=== PATIENT | male | born 1950 | race Caucasian/White ===

== ENCOUNTER 2016-11-12 14:34 | Inpatient (IN) ==
[2016-11-12 16:10] LABS: Basophils % 0.4 %; Eosinophils % 0.2 %; Hematocrit 39.7 % (37.5-50.1); Hemoglobin 13.2 g/dL (12.9-16.9); Immature Granulocytes % 0.4 % (0-4); Lymphocytes # 0.3 K/mcL (0.6-4.6); Lymphocytes % 3.2 %; Mean Corpuscular HGB Conc 33.2 g/dL (31.6-35.5); Mean Corpuscular Hemoglobin 30.2 pg (28.0-33.3); Mean Corpuscular Volume 90.8 fL (83.0-100.0); Mean Platelet Volume 9.6 fL (9.4-12.4); Monocytes # 0.7 K/mcL (0.0-1.3); Monocytes % 6.9 %; Neutrophils # 9.1 K/mcL (1.6-8.9); Platelet Count 184 K/mcL (140-400); Red Blood Count 4.37 M/mcL (4.19-5.50); Red Cell Distribution Width 12.5 % (11.5-14.5); Segmented Neutrophils % 88.9 %
[2016-11-12 16:16] LABS: Bilirubin,Urine Small (Negative); Blood,Urine Negative (Negative); Clarity,Urine Cloudy (Clear); Color,Urine Dark Yellow (Yellow); Glucose,Urine (UA) Normal (Normal); Ketones,Urine 15 mg/dL (Negative); Leukocyte Esterase,Urine Trace (Negative); Nitrite,Urine Negative (Negative); Protein,Urine 30 mg/dL (Neg-Trace); Specific Gravity,Urine 1.029 (1.010-1.025); Urobilinogen,Urine Normal (Normal)
[2016-11-12 16:21] LABS: Bacteria,Urine None Seen per hpf (None-Few); Hyaline Casts,Urine None Seen per lpf (None-Few); RBC,Urine 0-3 per hpf (0-3); Squamous Epithelial Cell,Urine Moderate per lpf (None-Few); WBC,Urine 0-3 per hpf (0-3)
[2016-11-12 16:25] LABS: Alanine Aminotransferase 479 Units/L (0-55); Albumin 3.7 g/dL (3.5-5.0); Albumin/Globulin Ratio 1.3 (1.1-2.2); Alkaline Phosphatase 128 Units/L (38-126); Aspartate Amino Transferase 309 Units/L (5-34); BUN/Creatinine Ratio 17 (6-26); Bilirubin,Direct 0.6 mg/dL (0.0-0.5); Bilirubin,Indirect 0.5 mg/dL (0.0-1.2); Blood Urea Nitrogen 17 mg/dL (8-26); Calcium 8.9 mg/dL (8.6-10.8); Carbon Dioxide 26 mEq/L (19-29); Chloride 100 mEq/L (98-109); Globulin 2.9 g/dL (2.4-3.5); Glucose 107 mg/dL (70-99); Lipase 397 Units/L (8-78); Osmolality,Calculated 278 (280-300); Sodium 133 mEq/L (136-145); Total Protein 6.6 g/dL (6.0-8.3); eGFR For African Americans > 60 (> 60); eGFR For Non-African Americans > 60 (> 60)
[2016-11-12] MEDS ORDERED: Ondansetron 4 MG/2 ML VIAL IVP ONE (16:25)
[2016-11-12] MEDS ORDERED: *HR* OxyCODONE/APAP 5/325 TABLET PO ONE (16:25)
[2016-11-12] MEDS ORDERED: 0.9 % Sodium Chloride 1,000 ML IVC ONE (16:25)
[2016-11-12 16:26] LABS: Bilirubin,Total 1.1 mg/dL (0.2-1.2)
[2016-11-12] MEDS ORDERED: *HR* HYDROmorphone (PF) 1 MG/ML SYRINGE IVP ONE (16:27)
[2016-11-12 16:34] LABS: Mucus,Urine Few (Few); Triple Phosphate Crystal,Urine Present
[2016-11-12] MEDS ORDERED: Piperacillin/Tazobactam 3.375 GM in D5% in Water (Mini-Bag+) 100 ML IVPB ONE (18:37)
--- NOTE | 2016-11-12 18:53 | Emergency Department Note ---
Disposition Clinical Impression: Acute cholecystitis Pancreatitis Qualifiers: Chronicity: acute Pancreatitis type: unspecified pancreatitis type Acute pancreatitis complication: unspecified Qualified Code(s): K85.90 - Acute pancreatitis without necrosis or infection, unspecified Disposition: Admitted As Inpatient Condition: Good Abdominal Pain HPI - General Chief Complaint: ED Abdominal Pain Stated Complaint: ABD Pain Time Seen by Provider: 11/12/16 16:07 Source: patient Mode of arrival: ambulatory Limitations: no limitations Nursing Notes Reviewed: Yes Vital Signs Reviewed: Yes - History of Present Illness HPI Narrative: Patient here for evaluation of epigastric pain that radiates to back. Patient has a history of hypertension followed Dr. Young. Has been treated outpatient for possible ulcer with no relief. Patient states this got to the point that he cannot eat or drink anything without having this pain. His pain is to last approximately minutes to hours but recent episodes have lasted as long as 6 hours. When these episodes happen the patient states that he lays still in bed until they resolve. Patient's main complaint is pain however there is associated nausea with these episodes. Limited vomiting. No constipation or diarrhea. Pain Scale: 0 - Related Data Allergies Allergy/AdvReac Type Severity Reaction Status Date / Time No Known Allergies Allergy Verified 11/12/16 14:59 Review of Systems: CONSTITUTIONAL: No weight loss, fever, chills, weakness or fatigue. HEENT: Eyes: No visual changes. Ears, Nose, Throat: No hearing loss, difficulty talking or unable to swallow. SKIN: No rash or itching. CARDIOVASCULAR: No chest pain, chest pressure or chest discomfort. No palpitations or edema. RESPIRATORY: No shortness of breath, cough or sputum. GASTROINTESTINAL: Abdominal pain, nausea GENITOURINARY: No burning on urination or hematuria. NEUROLOGICAL: No headache, dizziness, syncope, paralysis, ataxia, numbness or tingling in the extremities. No change in bowel or bladder control. MUSCULOSKELETAL: No muscle pain, back pain, joint pain or stiffness. Abdominal Pain PMH - Past Medical History Medical history: Reports: hypertension Male Surgical History: Reports: other Psychiatric history: Reports: no psych history - Social History Smoking status: Never smoker Alcohol use: Reports: none Drug use: Reports: none Physical Exam General appearance: NAD, conversant Eyes: anicteric sclerae, moist conjunctivae; PERRL HENT: Atraumatic; oropharynx clear with moist mucous membranes and no mucosal ulcerations Neck: Normal inspection; Trachea midline; FROM, supple Lungs: CTA, with normal respiratory effort and no intercostal retractions CV: RRR, no MRGs Abdomen: Soft, tender to palpation epigastric and right upper quadrant region. Extremities: No peripheral edema or extremity lymphadenopathy Skin: Normal temperature; no rash, ulcers or lesions Psych: Appropriate mood and affect Neuro: alert and oriented to person, place and time - General General appearance: alert, in no apparent distress Course - Reevaluation(s) Reevaluation #1: Patient's pain improved after 1 dose of IV pain medication. Patient resting comfortably in bed. Discussed lab work as well as imaging results and the patient will be admitted with further evaluation and management to be done in the hospital. We will discuss surgery. - Consultations Consultation #1: Discussed with Dr. Herrera. Patient with elevated lipase as well as liver enzymes in the setting of an ultrasound with thickened gallbladder wall as well as pericholecystic fluid. Patient accepted to the surgical service. Vital Signs Temperature 99.5 F 11/12/16 14:55 Pulse Rate 99 11/12/16 14:55 Respiratory Rate 16 11/12/16 14:55 Blood Pressure 111/75 11/12/16 14:55 O2 Sat by Pulse Oximetry 96 11/12/16 14:55 Temperature 99.5 F 11/12/16 14:55 Pulse Rate 77 11/12/16 18:37 Respiratory Rate 18 11/12/16 18:37 Blood Pressure 114/64 11/12/16 18:37 O2 Sat by Pulse Oximetry 96 11/12/16 18:37 Oxygen Delivery Oxygen Delivery Room Air Abdominal Pain - Lab Data Result diagrams: 11/12/16 16:01 11/12/16 16:01 Lab Results 11/12/16 11/12/16 11/12/16 Range/Units 16:01 16:01 16:01 WBC 10.2 (4.3-11.1) K/mcL RBC 4.37 (4.19-5.50) M/mcL Hgb 13.2 (12.9-16.9) g/dL Hct 39.7 (37.5-50.1) % MCV 90.8 (83.0-100.0) fL MCH 30.2 (28.0-33.3) pg MCHC 33.2 (31.6-35.5) g/dL RDW 12.5 (11.5-14.5) % Plt Count 184 (140-400) K/mcL MPV 9.6 (9.4-12.4) fL Immature Gran % 0.4 (0-4) % Seg Neutrophils % 88.9 % Lymphocytes % 3.2 % Monocytes % 6.9 % Eosinophils % 0.2 % Basophils % 0.4 % Neutrophils # 9.1 H (1.6-8.9) K/mcL Lymphocytes # 0.3 L (0.6-4.6) K/mcL Monocytes # 0.7 (0.0-1.3) K/mcL Eosinophils # 0.0 (0.0-0.6) K/mcL Basophils # 0.0 (0.0-0.2) K/mcL PT (9.4-12.1) Seconds INR Sodium 133 L (136-145) mEq/L Potassium 4.0 (3.5-4.5) mEq/L Chloride 100 (98-109) mEq/L Carbon Dioxide 26 (19-29) mEq/L BUN 17 (8-26) mg/dL Creatinine 1.02 (0.72-1.25) mg/dL Est GFR ( Amer) > 60 (> 60) Est GFR (Non-Af Amer) > 60 (> 60) BUN/Creatinine Ratio 17 (6-26) Glucose 107 H (70-99) mg/dL Calculated Osmolality 278 L (280-300) Calcium 8.9 (8.6-10.8) mg/dL Total Bilirubin 1.1 (0.2-1.2) mg/dL Direct Bilirubin 0.6 H (0.0-0.5) mg/dL Indirect Bilirubin 0.5 (0.0-1.2) mg/dL AST 309 H (5-34) Units/L ALT 479 H (0-55) Units/L Alkaline Phosphatase 128 H (38-126) Units/L Troponin I (0-0.03) ng/mL Serum Total Protein 6.6 (6.0-8.3) g/dL Albumin 3.7 (3.5-5.0) g/dL Globulin 2.9 (2.4-3.5) g/dL Albumin/Globulin Ratio 1.3 (1.1-2.2) Triglycerides Cancelled Cholesterol Cancelled LDL Cholesterol, Calc Cancelled VLDL Cholesterol, Calc Cancelled HDL Cholesterol Cancelled Cholesterol/HDL Ratio Cancelled Lipase 397 H (8-78) Units/L Urine Color Dark Yellow (Yellow) Urine Clarity Cloudy A (Clear) Urine pH 8.0 (5.0-8.0) pH Units Ur Specific [place] 1.029 H (1.010-1.025) Urine Protein 30 H (Neg-Trace) mg/dL Urine Glucose (UA) Normal (Normal) mg/dL Urine Ketones 15 H (Negative) mg/dL Urine Blood Negative (Negative) Urine Nitrite Negative (Negative) Urine Bilirubin Small H (Negative) Urine Urobilinogen Normal (Normal) mg/dL Ur Leukocyte Esterase Trace H (Negative) Urine Microscopic RBC 0-3 (0-3) per hpf Urine Microscopic WBC 0-3 (0-3) per hpf Ur Squamous Epith Cells Moderate H (None-Few) per lpf Triple Phos Crystals Present Urine Bacteria None Seen (None-Few) per hpf Hyaline Casts None Seen (None-Few) per lpf Urine Mucus Few (Few) Ur Culture Indicated? YES A (NO) 11/12/16 11/12/16 Range/Units 16:01 16:01 WBC (4.3-11.1) K/mcL RBC (4.19-5.50) M/mcL Hgb (12.9-16.9) g/dL Hct (37.5-50.1) % MCV (83.0-100.0) fL MCH (28.0-33.3) pg MCHC (31.6-35.5) g/dL RDW (11.5-14.5) % Plt Count (140-400) K/mcL MPV (9.4-12.4) fL Immature Gran % (0-4) % Seg Neutrophils % % Lymphocytes % % Monocytes % % Eosinophils % % Basophils % % Neutrophils # (1.6-8.9) K/mcL Lymphocytes # (0.6-4.6) K/mcL Monocytes # (0.0-1.3) K/mcL Eosinophils # (0.0-0.6) K/mcL Basophils # (0.0-0.2) K/mcL PT 14.6 H (9.4-12.1) Seconds INR 1.3 Sodium (136-145) mEq/L Potassium (3.5-4.5) mEq/L Chloride (98-109) mEq/L Carbon Dioxide (19-29) mEq/L BUN (8-26) mg/dL Creatinine (0.72-1.25) mg/dL Est GFR ( Amer) (> 60) Est GFR (Non-Af Amer) (> 60) BUN/Creatinine Ratio (6-26) Glucose (70-99) mg/dL Calculated Osmolality (280-300) Calcium (8.6-10.8) mg/dL Total Bilirubin (0.2-1.2) mg/dL Direct Bilirubin (0.0-0.5) mg/dL Indirect Bilirubin (0.0-1.2) mg/dL AST (5-34) Units/L ALT (0-55) Units/L Alkaline Phosphatase (38-126) Units/L Troponin I 0.01 (0-0.03) ng/mL Serum Total Protein (6.0-8.3) g/dL Albumin (3.5-5.0) g/dL Globulin (2.4-3.5) g/dL Albumin/Globulin Ratio (1.1-2.2) Triglycerides Cholesterol LDL Cholesterol, Calc VLDL Cholesterol, Calc HDL Cholesterol Cholesterol/HDL Ratio Lipase (8-78) Units/L Urine Color (Yellow) Urine Clarity (Clear) Urine pH (5.0-8.0) pH Units Ur Specific [place] (1.010-1.025) Urine Protein (Neg-Trace) mg/dL Urine Glucose (UA) (Normal) mg/dL Urine Ketones (Negative) mg/dL Urine Blood (Negative) Urine Nitrite (Negative) Urine Bilirubin (Negative) Urine Urobilinogen (Normal) mg/dL Ur Leukocyte Esterase (Negative) Urine Microscopic RBC (0-3) per hpf Urine Microscopic WBC (0-3) per hpf Ur Squamous Epith Cells (None-Few) per lpf Triple Phos Crystals Urine Bacteria (None-Few) per hpf Hyaline Casts (None-Few) per lpf Urine Mucus (Few) Ur Culture Indicated? (NO) Attestation Statement - Attestation Attestation: I examined this patient and my medical decision-making was reviewed with the RECREATION ATTENDANT/PA/Advanced Practice Nurse/Resident Physician. I agree with the documented findings, disposition and treatment plan as described except to the extent set forth below. 66-year-old male patient with acute pancreatitis results, was found to have acute cholecystitis. Antibiotic therapy initiated. Consulted general surgery who is agreed to admit the patient for cholecystectomy.
[2016-11-12 19:01] LABS: INR 1.3; Prothrombin Time 14.6 Seconds (9.4-12.1)
[2016-11-12] MEDS: 0.9 % Sodium Chloride 1,000 ML IVC SCH (22:15)
[2016-11-12] MEDS ORDERED: *HR* HYDROmorphone (PF) 1 MG/ML SYRINGE IVP PRN (22:21)
[2016-11-12] MEDS ORDERED: Ondansetron 4 MG/2 ML VIAL IVP PRN (22:21)
[2016-11-12] MEDS ORDERED: 0.9 % Sodium Chloride 1,000 ML ONE (22:32)
--- NOTE | 2016-11-12 22:37 | General Surg History&Physical ---
Date of Encounter: 11/12/16 Time of Encounter: 22:10 Assessment and Plan (1) Gallstone pancreatitis Current Visit: Yes Status: Acute The assessment and plan as outlined above was discussed with the patient and/or family members who expressed understanding and agreement. All questions were answered. We will plan convalescent laparoscopic cholecystectomy and intraoperative cholangiogram. I will check his amylase and lipase tomorrow morning. If these values have normalized we will proceed with laparoscopic cholecystectomy, cholangiogram later in the day. History of Present Illness Chief complaint: Abdominal pain HPI: Mr. Guerin is a 66 year old male Was been having abdominal pain for 3 years. The pain is always been right upper quadrant and epigastric. Over the last 3 months this is increased in frequency and intensity. Most recently he had an episode that lasted over 7 hours. The pain is right upper quadrant radiating to the epigastrium and left upper quadrant. The pain is often associated with fatty food ingestion and often associated with nausea and vomiting. He has specifically denied shakes chills or fever. He has denied episodes of jaundice. He sought evaluation in the emergency department. CAT scan demonstrates cholelithiasis and pericholecystic fluid. Lipase is elevated consistent with gallstone pancreatitis. Past Med Surg Social Fam HX - Past Medical History Medical history: hypertension Psychiatric history: no psych history - Social History Smoking Status: Never smoker Smokeless Tobacco Status: No Alcohol use: none Drug use: none Medications and Allergies Lisinopril [Zestril] 5 mg PO DAILY 11/12/16 [History] Allergies No Known Allergies Allergy (Verified 11/12/16 14:59) Review of Systems All systems PM: A 10-system review of systems was performed and is negative for pertinent findings except as documented above in the HPI. General Surgery Exam Initial Vital Signs Temp Pulse Resp BP Pulse Ox 99.5 F 99 16 111/75 96 11/12/16 14:55 11/12/16 14:55 11/12/16 14:55 11/12/16 14:55 11/12/16 14:55 - General physical appearance well developed, well nourished, no distress - Neck no masses, no bruits, trachea midline, no lymphadectomy, no venous distension - Respiratory normal expansion, normal respiratory effort, clear to percussion, clear to auscultation - Cardiovascular Cardiovascular exam: Present: RRR, no murmurs/rubs/gallops - Abdomen Abdomen general surgery: Present: tender, guarding Abdominal Tenderness: Present: epigastic, RUQ - Neurologic Present: CN 2-12 grossly intact, normal coordination, normal sensation - Psychiatric Psychiatric general surgery: Present: appropriate, oriented to person, oriented to place, oriented to time, speech is normal, memory intact Results - Labs 11/12/16 16:01 11/12/16 16:01 Abnormal lab results Neutrophils # 9.1 K/mcL (1.6-8.9) H 11/12/16 16:01 Lymphocytes # 0.3 K/mcL (0.6-4.6) L 11/12/16 16:01 PT 14.6 Seconds (9.4-12.1) H 11/12/16 16:01 Sodium 133 mEq/L (136-145) L 11/12/16 16:01 Glucose 107 mg/dL (70-99) H 11/12/16 16:01 Calculated Osmolality 278 (280-300) L 11/12/16 16:01 Direct Bilirubin 0.6 mg/dL (0.0-0.5) H 11/12/16 16:01 AST 309 Units/L (5-34) H 11/12/16 16:01 ALT 479 Units/L (0-55) H 11/12/16 16:01 Alkaline Phosphatase 128 Units/L (38-126) H 11/12/16 16:01 Lipase 397 Units/L (8-78) H 11/12/16 16:01 Urine Clarity Cloudy (Clear) A 11/12/16 16:01 Ur Specific [place] 1.029 (1.010-1.025) H 11/12/16 16:01 Urine Protein 30 mg/dL (Neg-Trace) H 11/12/16 16:01 Urine Ketones 15 mg/dL (Negative) H 11/12/16 16:01 Urine Bilirubin Small (Negative) H 11/12/16 16:01 Ur Leukocyte Esterase Trace (Negative) H 11/12/16 16:01 Ur Squamous Epith Cells Moderate per lpf (None-Few) H 11/12/16 16:01 Ur Culture Indicated? YES (NO) A 11/12/16 16:01 All other labs normal. - Imaging CT scan - abdomen: image reviewed (I personally reviewed the CAT scan of the abdomen. Findings are consistent with cholelithiasis and pericholecystic fluid. )
[2016-11-13] MEDS: Piperacillin/Tazobactam 3.375 GM in D5% in Water (Mini-Bag+) 100 ML IVPB SCH ×3 (01:00→16:41)
[2016-11-13] MEDS ORDERED: D5% in Water (Mini-Bag+) 100 ML IVPB ONE (01:26)
[2016-11-13 03:35] LABS: Basophils % 0.6 %; Eosinophils % 0.2 %; Hematocrit 35.2 % (37.5-50.1); Hemoglobin 11.9 g/dL (12.9-16.9); Immature Granulocytes % 0.3 % (0-4); Lymphocytes # 0.6 K/mcL (0.6-4.6); Lymphocytes % 9.3 %; Mean Corpuscular HGB Conc 33.8 g/dL (31.6-35.5); Mean Corpuscular Hemoglobin 30.9 pg (28.0-33.3); Mean Corpuscular Volume 91.4 fL (83.0-100.0); Mean Platelet Volume 10.1 fL (9.4-12.4); Monocytes # 0.5 K/mcL (0.0-1.3); Platelet Count 159 K/mcL (140-400); Red Blood Count 3.85 M/mcL (4.19-5.50); Red Cell Distribution Width 12.7 % (11.5-14.5); Segmented Neutrophils % 81.6 %
[2016-11-13 03:53] LABS: Alanine Aminotransferase 321 Units/L (0-55); Albumin 3.1 g/dL (3.5-5.0); Albumin/Globulin Ratio 1.2 (1.1-2.2); Alkaline Phosphatase 101 Units/L (38-126); Amylase 181 Units/L (25-125); Aspartate Amino Transferase 172 Units/L (5-34); BUN/Creatinine Ratio 18 (6-26); Bilirubin,Direct 0.5 mg/dL (0.0-0.5); Bilirubin,Indirect 0.6 mg/dL (0.0-1.2); Bilirubin,Total 1.1 mg/dL (0.2-1.2); Blood Urea Nitrogen 18 mg/dL (8-26); Carbon Dioxide 25 mEq/L (19-29); Chloride 104 mEq/L (98-109); Globulin 2.5 g/dL (2.4-3.5); Glucose 101 mg/dL (70-99); Lipase 79 Units/L (8-78); Osmolality,Calculated 280 (280-300); Potassium 3.7 mEq/L (3.5-4.5); Sodium 134 mEq/L (136-145); Total Protein 5.6 g/dL (6.0-8.3); eGFR For African Americans > 60 (> 60); eGFR For Non-African Americans > 60 (> 60)
[2016-11-13] MEDS: *HR* Heparin 5,000 UNIT/ML VIAL SQ SCH ×2 (06:50→17:51)
[2016-11-13] MEDS ORDERED: Pantoprazole 40 MG VIAL IVP SCH (09:00)
[2016-11-13] MEDS: 0.9 % Sodium Chloride 1,000 ML IVC SCH ×2 (09:54→19:41)
--- NOTE | 2016-11-13 17:36 | Electrocardiograph Report ---
[place] [id number] Test Date: 2016-11-12 Pat Name: Alberto Guerin Department: 104 Room: 3B23 Gender: M Benefits Coordinator: DUONG : 1950 Requested By: Freddie Gorman Order Number: [id number] Reading MD: Katelynn Damon Measurements Intervals [place] Rate: 74 P: 46 AL: 142 QRS: 36 QRSD: 85 T: 38 QT: 341 QTc: 369 Interpretive Statements SINUS RHYTHM Electronically Signed On 11-13-2016 17:34:52 EDT by Katelynn Damon
--- NOTE | 2016-11-13 18:10 | Anesthesia Evaluation PreOp ---
Date of Encounter: 11/13/16 Time of Encounter: 18:08 - Past History Planned Operation: lap benjamin Cardiac History: HTN Pulmonary History: Denies Any Significant HX [employer]ING STAFF MEMBER History: Denies Any Significant HX Other Medical History: Hepatic (elevated LFT's downtrending) Anesthesia History: No Prior Anesthetic Complications, Past Anesthesia (lumbar) Alcohol Use: none Drug use: none Medications and Allergies Lisinopril [Zestril] 5 mg PO DAILY 11/12/16 [History] Multivits,Ca,Min/Iron/FA/Lycop [Centrum Men's Tablet] 1 each PO DAILY 11/12/16 [ History] Allergies No Known Allergies Allergy (Verified 11/12/16 14:59) - Meds/Allergy Pre-op Review Medications Reviewed: Yes (zosyn last dose 16:41) Allergies Reviewed: Yes Beta Blockers on Current Med List: No Anesthesia Results - Labs 11/13/16 02:55 11/13/16 02:55 - Imaging EKG: report reviewed (sr) Anesthesia Exam Vital Signs/O2 Sat/Glucose, Most Current Temp Pulse Resp BP Pulse Ox 11/13/16 15:59 99.9 F H 74 18 124/68 94 Height: 1.85 Weight: 92 NPO (# of Hours): >8 - HEENT Pupil (Motor): Pupils equal, EOMI Mallampati: II Teeth: Normal Oral Opening: Greater than 3 - CAT[employer]ING ST[employer]FF MEMBER LOC: Oriented [employer] ST[employer]FF MEMBER Motor: Normal RUE, Normal LUE, Normal RLE, Normal LLE, Normal Face [employer]FF MEMBER Sensory: Normal: RUE, LUE, RLE, LLE, Face - Cardiac Rhythm: Regular Murmur: None - Pulmonary Breath Sounds: bilateral Clear Respiratory Effort: Symmetrical Anesthesia Assess/Plan ASA Score: 2 Modified [place] Scale for Level of Consciousness: Cooperative, oriented, and tranquil Anesthetic Plan: General Monitoring Plan: Standard Monitors Recovery Plan: PACU
[2016-11-13] MEDS ORDERED: *HR* FentaNYL (PF) 100 MCG/2 ML VIAL ONE (21:07)
[2016-11-13] MEDS ORDERED: *HR* Morphine 10 MG/ML VIAL ONE (21:08)
[2016-11-13] MEDS ORDERED: *HR* Propofol 200 MG/20 ML VIAL IVP ONE (21:08)
[2016-11-13] MEDS ORDERED: *HR* Midazolam HCl 2 MG/2 ML VIAL ONE (21:08)
[2016-11-13] MEDS ORDERED: Lidocaine -MPF 2% 2 ML VIAL ONE (21:09)
[2016-11-13] MEDS ORDERED: *HR* Succinylcholine 200 MG/10 ML VIAL IVP ONE (21:09)
[2016-11-13] MEDS ORDERED: CefOXitin 2,000 MG VIAL IVPB ONE (21:15)
[2016-11-13] MEDS ORDERED: Neostigmine Methylsulfate 3 MG/3 ML SYRINGE ONE (21:46)
[2016-11-13] MEDS ORDERED: *HR* Labetalol 20 MG/4 ML SYRINGE IVP PRN (22:01)
[2016-11-13] MEDS ORDERED: *HR* Promethazine 25 MG/ML VIAL IVP PRN (22:01)
[2016-11-13] MEDS ORDERED: *HR* HYDROmorphone (PF) 1 MG/ML SYRINGE IVP PRN ×2 (22:01→22:47)
--- NOTE | 2016-11-13 22:06 | Operative Note ---
Date of procedure: 11/13/16 Pre-op diagnosis: Gallstone pancreatitis Post-op diagnosis: other (Choledocholithiasis) Procedure: Endoscopic cholecystectomy, cholangiogram Anesthesia: BIBIANA Surgeon: John Herrera Estimated blood loss (cc): 25 Specimen: Gallbladder and contents Condition: stable Disposition: PACU Procedure in Detail: Laparoscopic cholecystectomy and intraoperative cholangiogram Operative procedure after informed consent and appropriate patient identification timeout the patient's take major operating suite and placed supine position given adequate general endotracheal anesthesia the abdomen is prepped and draped in sterile fashion utilizing ChloraPrep standard draping techniques timeout was taken patient is identified. I made a vertical midline incision below the umbilicus dissected down to level of fascia there are 2 traction stitches placed in the abdominal cavity was entered visually. A Epstein trocar was placed in the abdomen and the abdomen was insufflated to 15 mmHg pressure CO2 the gallbladder was visualized. A placement 11 port in the subxiphoid area and 2 5 mm ports in the subcostal area. The gallbladder was grasped and elevated. A variety of blunt and sharp dissection techniques were used to isolate the cystic duct and cystic artery. The cystic artery was controlled with 2 surgical clips proximally and one distally and it was divided I placed a surgical clip on the neck the gallbladder and obtained an intraoperative cholangiogram using 10 mL of Isovue. Intraoperative cholangiogram demonstrated choledocholithiasis with flow into the duodenum.. The cholangiocatheter was removed and the cystic duct was controlled with 2 surgical clips proximally and was divided the gallbladder was removed from the gallbladder fossae using electrocautery. The gallbladder was removed through the #11 port site. I replaced the #11 port and irrigated with copious amounts of antibiotic containing solution. There is no evidence of bleeding or bile leak. All trochars were removed. Fascia was closed with 0 Vicryl skin with 2-0 and 4-0 Vicryl he tolerated the procedure well and was transferred to recovery in stable condition. The patient will require further therapy for choledocholithiasis.
--- NOTE | 2016-11-13 22:42 | Anesthesia Evaluation Post Op ---
Date of Encounter: 11/13/16 Time of Encounter: 22:41 - Vital Signs Vital Signs: Vital Signs/O2 Sat/Glucose, Most Recent Temp Pulse Resp BP Pulse Ox 100.5 F H 88 16 137/67 94 11/13/16 22:18 11/13/16 22:28 11/13/16 22:28 11/13/16 22:28 11/13/16 22:28 Blood Glucose* 100 - Lungs Lungs: Clear Ascult./Percussion - Airway Airway: Non-obstructed - Cardiovascular Regular Rate - Mental Status Mental Status: Asleep with brisk response to light stimulation - Pain Pain Scale: 0 Pain Scale used: Numeric (1 - 10) - Nausea Vomiting Nausea Vomiting: Not Present - Hydration Hydration: NPO, Has not voided - Discharge PostOp Status: Transfer Patient to floor
[2016-11-13] MEDS ORDERED: *HR* OxyCODONE/APAP 5/325 TABLET PO PRN (22:47)
[2016-11-13] MEDS ORDERED: Ondansetron 4 MG/2 ML VIAL IVP PRN ×2 (22:47)
[2016-11-13] MEDS ORDERED: 0.9 % Sodium Chloride 1,000 ML IVC SCH ×2 (22:47)
[2016-11-13] MEDS ORDERED: *HR* Rocuronium Bromide 50 MG/5 ML VIAL ONE (22:48)
[2016-11-14] MEDS: Piperacillin/Tazobactam 3.375 GM in D5% in Water (Mini-Bag+) 100 ML IVPB SCH ×2 (00:05→08:03)
[2016-11-14 04:02] LABS: Basophils % 0.3 %; Hematocrit 34.7 % (37.5-50.1); Hemoglobin 11.7 g/dL (12.9-16.9); Immature Granulocytes % 0.5 % (0-4); Lymphocytes # 0.4 K/mcL (0.6-4.6); Lymphocytes % 5.7 %; Mean Corpuscular HGB Conc 33.7 g/dL (31.6-35.5); Mean Corpuscular Hemoglobin 30.3 pg (28.0-33.3); Mean Corpuscular Volume 89.9 fL (83.0-100.0); Mean Platelet Volume 10.1 fL (9.4-12.4); Monocytes # 0.2 K/mcL (0.0-1.3); Monocytes % 3.5 %; Neutrophils # 5.7 K/mcL (1.6-8.9); Platelet Count 135 K/mcL (140-400); Red Blood Count 3.86 M/mcL (4.19-5.50); Red Cell Distribution Width 12.2 % (11.5-14.5)
[2016-11-14 04:10] LABS: INR 1.2; Prothrombin Time 13.2 Seconds (9.4-12.1)
[2016-11-14 04:13] LABS: Activated Partial Thrombo Time 28.3 Seconds (26.0-36.0)
[2016-11-14 04:16] LABS: Alanine Aminotransferase 228 Units/L (0-55); Albumin 2.8 g/dL (3.5-5.0); Albumin/Globulin Ratio 1.1 (1.1-2.2); Alkaline Phosphatase 98 Units/L (38-126); Aspartate Amino Transferase 114 Units/L (5-34); BUN/Creatinine Ratio 18 (6-26); Bilirubin,Direct 0.4 mg/dL (0.0-0.5); Bilirubin,Indirect 0.3 mg/dL (0.0-1.2); Bilirubin,Total 0.7 mg/dL (0.2-1.2); Blood Urea Nitrogen 17 mg/dL (8-26); Calcium 7.7 mg/dL (8.6-10.8); Carbon Dioxide 24 mEq/L (19-29); Chloride 103 mEq/L (98-109); Globulin 2.6 g/dL (2.4-3.5); Glucose 199 mg/dL (70-99); Osmolality,Calculated 281 (280-300); Potassium 4.1 mEq/L (3.5-4.5); Sodium 132 mEq/L (136-145); Total Protein 5.4 g/dL (6.0-8.3); eGFR For African Americans > 60 (> 60); eGFR For Non-African Americans > 60 (> 60)
[2016-11-14] MEDS ORDERED: *HR* Heparin 5,000 UNIT/ML VIAL SQ SCH (06:00)
[2016-11-14] MEDS ORDERED: Pantoprazole 40 MG VIAL IVP SCH (09:00)
--- NOTE | 2016-11-14 12:59 | Discharge Summary ---
Date of Encounter: 11/14/16 Time of Encounter: 13:00 - Discharge Diagnosis (1) Choledocholithiasis Priority: Secondary Status: Acute (2) Gallstone pancreatitis Priority: Primary Status: Acute (3) HTN (hypertension) Priority: Secondary Status: Chronic Qualifiers: Hypertension type: essential hypertension Qualified Code(s): I10 - Essential (primary) hypertension - Discharge Medications Prescriptions: OxyCODONE/APAP 5/325 [Percocet 5/325 MG] 1 each PO Q4HR PRN #30 tablet PRN Reason: Pain Docusate [Colace] 100 mg PO BID #30 capsule Home Medications: Lisinopril [Zestril] 5 mg PO DAILY 11/12/16 [History] Multivits,Ca,Min/Iron/FA/Lycop [Centrum Men's Tablet] 1 each PO DAILY 11/12/16 [ History] Docusate [Colace] 100 mg PO BID #30 capsule 11/14/16 [Rx] OxyCODONE/APAP 5/325 [Percocet 5/325 MG] 1 each PO Q4HR PRN #30 tablet 11/14/16 [Rx] Allergies/Adverse Reactions: Allergies No Known Allergies Allergy (Verified 11/12/16 14:59) General Surgery Exam Initial Vital Signs Temp Pulse Resp BP Pulse Ox 99.5 F 99 16 111/75 96 11/12/16 14:55 11/12/16 14:55 11/12/16 14:55 11/12/16 14:55 11/12/16 14:55 - General physical appearance well developed, well nourished, no distress. negative: jaundice - Eyes PERRL, normal ocular movement - ENT normal mucosa, normocephalic - Neck trachea midline - Respiratory normal expansion, normal respiratory effort - Cardiovascular Cardiovascular exam: Present: RRR, no murmurs/rubs/gallops - Abdomen Abdomen general surgery: Present: bowel sounds present, soft, tender ( Appropriate postop tenderness) - Incision Incision: Present: clean and dry, intact - Integumentary Integumentary general surgery: Present: warm and dry, no abnormal pigmentation. Absent: diaphoresis - Neurologic Present: CN 2-12 grossly intact - Musculoskeletal Present: normal gait, normal posture - Psychiatric Psychiatric general surgery: Present: A&Ox3, oriented to time Date of admission: 11/12/16 20:38 Primary care physician: Ismael Rayo Jr, MD Discharging clinician: Anika Powell Anticipated date of discharge: 11/14/16 - Patient Status Disposition: Transfer Other Condition: Good Overall status at discharge: patient is progressing back to baseline - Discharge Instructions Instructions: Laparoscopic Cholecystectomy (DC) Follow Up With: Ismael Rayo Jr, MD [Primary Care Provider] - John Herrera MD [Partnered Physician] - (2 weeks for post operative check) Additional Instructions: No lifting more than 20 pounds for 2 weeks. Okay to take a shower in 24 hours. No tub baths or pools for 1 week. Okay to ride in the car wearing a seatbelt and climb steps. No driving until off narcotics for 24 hours and able to react safely Remove Steri-Strips in 1 week Do not take pain medicine/narcotics on an empty stomach it will likely cause nausea and possibly vomiting. If pain medication is too strong okay to break in half - Diet and Activity Activity: increase activity as tolerated Diet: low fat, low cholesterol - Hospital Course Hospital course: Mr. Guerin is a 66 year old male admitted with RUQ abdominal pain, nausea and emesis. He has had symptoms on and off for several years. He had US gallbladder done showing cholelithiasis, mild gallbladder wall thickening and pericholecystic fluid. His lipase was elevated. He was given a diagnosis of gallstone pancreatitis. He was taken to the OR for a laparoscopic cholecystectomy with intraoperative cholangiograms yesterday. Cholangiograms demonstrated a common bile duct stone which was not obstructing. [facility] his been contacted for transfer for ERCP. - Time Spent with Patient Total time spent providing and/or coordinating discharge services: Labs on day of discharge: Labs from last 24 hours 11/14/16 11/14/16 11/14/16 03:27 03:27 03:27 WBC 6.3 RBC 3.86 L Hgb 11.7 L Hct 34.7 L MCV 89.9 MCH 30.3 MCHC 33.7 RDW 12.2 Plt Count 135 L MPV 10.1 Immature Gran % 0.5 Seg Neutrophils % 90.0 Lymphocytes % 5.7 Monocytes % 3.5 Eosinophils % 0.0 Basophils % 0.3 Neutrophils # 5.7 Lymphocytes # 0.4 L Monocytes # 0.2 Eosinophils # 0.0 Basophils # 0.0 PT 13.2 H INR 1.2 APTT 28.3 Sodium 132 L Potassium 4.1 Chloride 103 Carbon Dioxide 24 BUN 17 Creatinine 0.92 Est GFR ( Amer) > 60 Est GFR (Non-Af Amer) > 60 BUN/Creatinine Ratio 18 Glucose 199 H POC Glucose Calculated Osmolality 281 Calcium 7.7 L Total Bilirubin 0.7 Direct Bilirubin 0.4 Indirect Bilirubin 0.3 AST 114 H ALT 228 H Alkaline Phosphatase 98 Serum Total Protein 5.4 L Albumin 2.8 L Globulin 2.6 Albumin/Globulin Ratio 1.1 11/14/16 11/13/16 00:09 07:44 WBC RBC Hgb Hct MCV MCH MCHC RDW Plt Count MPV Immature Gran % Seg Neutrophils % Lymphocytes % Monocytes % Eosinophils % Basophils % Neutrophils # Lymphocytes # Monocytes # Eosinophils # Basophils # PT INR APTT Sodium Potassium Chloride Carbon Dioxide BUN Creatinine Est GFR ( Amer) Est GFR (Non-Af Amer) BUN/Creatinine Ratio Glucose POC Glucose 147 H 100 H Calculated Osmolality Calcium Total Bilirubin Direct Bilirubin Indirect Bilirubin AST ALT Alkaline Phosphatase Serum Total Protein Albumin Globulin Albumin/Globulin Ratio - Impressions ITS Impressions Cholangiogram,Operative 11/13/16 00:00 IMPRESSION: Filling defect in the distal common bile duct concerning for common bile duct stone. Less likely an air bubble may be considered. Dilation of the bile ducts. Slight progression of contrast into small bowel, low grade partial obstruction is not excluded. D/ / 11/13/2016 21:56:04 Glenn Dasilva MD / bcarter Interpreting Provider: Glenn Dasilva MD
[2016-11-14 15:18] VITALS: BP 112/72
--- NOTE | 2016-11-18 12:27 | Event Note ---
Date of Encounter: 11/18/16 Time of Encounter: 12:25 Chart reviewed for quality. Insurance [id number] denial appeal.
== END 2016-11-14 17:44 | disposition short-term general hospital (02) | DRG 418 ==
LOC: 3BNU 14:34 → EMEROO 14:34 → 3BNU 20:22
PROVIDERS: ADMIT Surgery; ATTEND Surgery